=== PATIENT | female | born 1970 | race Two or more races ===

== ENCOUNTER 2016-02-16 00:53 | Emergency (ER) | payer MEDICAID ==
[~2016-02-16] VITALS: Ht 172.7 cm; Wt 95.3 kg
[2016-02-16 01:20] VITALS: BP 127/101
== END 2016-02-16 01:30 | disposition home or self-care (01) ==
LOC: ER 00:55
DX: A49.02 Methicillin resistant Staphylococcus aureus infection, unspecified site (principal); C50.919 Malignant neoplasm of unspecified site of unspecified female breast
CPT/HCPCS: 99283; A4606; Z7610